=== PATIENT | male | born 1990 | race Caucasian/White ===

== ENCOUNTER 2016-12-09 12:38 | Emergency (ER) | payer MEDICAID ==
[2016-12-09 13:06] VITALS: BP 128/87
[2016-12-09] MEDS ORDERED: Sodium Chloride 0.9% 1,000 ML IV ONE (13:08)
[2016-12-09 13:32] LABS: % BASOPHILS 1.1 % (0.0-2.0); % EOSINOPHILS 0.3 % (0.0-5.0); % MONOCYTES 5.4 % (2.0-10.0); % NEUTROPHILS 76.2 % (40.0-80.0); HEMATOCRIT 42.2 % (39.0-49.0); HEMOGLOBIN 14.3 gm/dL (13.2-17.3); MEAN CORPUSCULAR HEMOGLOBIN 29.2 pg (26.0-30.0); MEAN PLATELET VOLUME 8.5 fl; NEUTROPHILE ABSOLUTE 6.3 Th/cmm (1.8-8.0); PLATELET COUNT 130 Th/cmm (150-400); RED BLOOD COUNT 4.91 Mil/cmm (4.30-5.70); RED CELL DISTRIBUTION WIDTH 12.5 % (11.5-20.0); WHITE BLOOD COUNT 8.2 Th/cmm (4.8-10.8)
[2016-12-09 13:42] LABS: INR 1.02 (0.5-1.4); PROTHROMBIN TIME (TEST) 10.6 SECONDS (9.5-11.5)
[2016-12-09 13:45] LABS: ALB/GLOB RATIO 1.4 (1.0-1.8); ALKALINE PHOSPHATASE 50 U/L (34-104); ANION GAP 7.3 (7.0-16.0); BILIRUBIN,TOTAL 0.7 mg/dL (0.3-1.0); BUN - UREA NITROGEN 25 mg/dL (7-25); BUN/CREATININE RATIO 27.8; CALCIUM SERUM 9.8 mg/dL (8.6-10.3); CARBON DIOXIDE 25.3 mEq/L (21.0-31.0); CHLORIDE 108 mEq/L (98-107); CREATININE - SERUM 0.9 mg/dL (0.7-1.3); GLUCOSE 104 mg/dL (70-105); POTASSIUM SERUM 3.6 mEq/L (3.5-5.1); SGOT 18 U/L (13-39); SGPT/ALT 12 U/L (7-52); SODIUM SERUM 137 mEq/L (136-145)
[2016-12-09 13:46] LABS: CHOLESTEROL 118 mg/dL (<200); TRIGLYCERIDES 39 mg/dL (<150)
[2016-12-09 15:42] LABS: URINE COLOR YELLOW
[2016-12-09 15:43] LABS: URINE BILIRUBIN NEGATIVE (NEGATIVE); URINE GLUCOSE (UA) NEGATIVE (NEGATIVE); URINE KETONE TRACE mg/dL (NEGATIVE)
[2016-12-09 15:44] LABS: URINE BACTERIA FEW /hpf (NONE SEEN); URINE BLOOD NEGATIVE (NEGATIVE); URINE EPITHELIAL CELLS FEW /lpf (FEW); URINE PROTEIN 30 mg/dL (NEGATIVE); URINE RBC 0-2 /hpf (0-5); URINE UROBILINOGEN 0.2 E.U./dL (0.2 - 1.0); URINE WBC 0-2 /hpf (0-5)
[2016-12-09 15:46] LABS: AMPHETAMINE URINE POSITIVE (NEGATIVE); BARBITURATES URINE NEGATIVE (NEGATIVE); METHADONE URINE NEGATIVE (NEGATIVE)
[2016-12-09] MEDS ORDERED: Flumazenil 0.1 m/mL 5mL Vial IVP STA ×2 (15:56→16:04)
[2016-12-09] MEDS ORDERED: Flumazenil 0.1 m/mL 5mL Vial IVP ONE (16:03)
--- NOTE | 2016-12-09 16:04 | ED Physician Chart ---
Chief Complaint/HPI - Patient Information Date Seen:: 12/09/16 Time Seen:: 13:20 Chief Complaint:: drug abuse History of Present Illness:: this is a 26 yo male [employer] in cuffs and straps because he has been difficult to manage. he is very uncooperative and appears to be under the influence. the history and review of system are not reliable at this time. THE PATIENT PURPOSELY WAS TRYING TO HURT HIMSELF BY HITTING HIS HEAD ON THE WAS AND SUSTAINED TO CONTUSION SPOTS. Allergies:: Allergies Allergy/AdvReac Type Severity Reaction Status Date / Time No Known Allergies Allergy Verified 12/09/16 13:06 Vitals:: Vital Signs - 8 hr 12/09/16 13:06 Temp 98.9 F HR 93 RR 17 BP 128/87 Historian:: EMS Review:: Nurse's Note Reviewed Review of Systems - Review of Systems General/Constitutional: Other (cannot get) Past Medical History - Past Medical History Obtainable: No Past Medical History: No significant medical hx Family History: None Social History: Non Smoker, No Alcohol, Illicit Drug Use Surgical History: None Psychiatricy History: Other (unknown) Physical Exam - Physical Examination General/Constitutional: Well-developed, well-nourished, Alert, No distress, GCS 15, Non-toxic appearing, Ambulatory Other Gen/Cons comments:: the patient is lethargic and uncooperative Head: Atraumatic (TWO SMALL CONTUSION RED SPOTS OF THE HEAD.) Eyes: Lids, conjuctiva normal, PERRL, EOMI Skin: Nl inspection, No rash, No skin lesions, No ecchymosis, Well hydrated, No lymphadenopathy ENMT: External ears, nose nl, Nasal exam nl, Lips, teeth, gums nl Neck: Nontender, Full ROM w/o pain, No JVD, No nuchal rigidity, No bruit, No mass, No stridor Respiratory: Nl effort/Exclusion, Clear to Auscultation, No Wheeze/Rhonchi/Rales Cardio Vascular: RRR, No murmur, gallop, rubs, NL S1 S2 GI: No tenderness/rebounding/guarding, No organomegaly, No hernia, Normal BS's, Nondistended, No mass/bruits, No McBurney tenderness, Rectum exam nl (normal and nothing found in the rectum.) : No CVA tenderness Extremities: No tenderness or effusion, Full ROM, normal strength in all extremities, No edema, Normal digits & nails Neuro/Psych: Alert/oriented, DTR's symmetric, Normal sensory exam, Normal motor strength, Judgement/insight normal, Mood normal, Normal gait, No focal deficits Misc: normal gait, Normal back, No paraspinal tenderness Labs/Radiology/EKG Results - Lab Results Results: Laboratory Tests 12/09/16 12/09/16 12/09/16 13:16 13:16 13:16 WBC 8.2 RBC 4.91 Hgb 14.3 Hct 42.2 MCV 86.0 MCH 29.2 MCHC Differential 34.0 RDW 12.5 Plt Count 130 L MPV 8.5 Neutrophils % 76.2 Lymphocytes % 17.0 L Monocytes % 5.4 Eosinophils % 0.3 Basophils % 1.1 PT 10.6 INR 1.02 Sodium Potassium Chloride Carbon Dioxide Anion Gap BUN Creatinine Est GFR ( Amer) Est GFR (Non-Af Amer) BUN/Creatinine Ratio Glucose Hemoglobin A1c % Calcium Total Bilirubin AST ALT Alkaline Phosphatase Troponin I Total Protein Albumin Globulin Albumin/Globulin Ratio Triglycerides 39 Cholesterol 118 LDL Cholesterol Direct 57 L HDL Cholesterol 52 TSH Urine Source Urine Color Urine Clarity Urine pH Ur Specific [place] Urine Protein Urine Glucose (UA) Urine Ketones Urine Blood Urine Nitrate Urine Bilirubin Urine Urobilinogen Ur Leukocyte Esterase Urine RBC Urine WBC Ur Epithelial Cells Urine Bacteria Urine Mucus Urine Opiates Screen Urine Methadone Screen Ur Barbiturates Screen Ur Tricyclics Screen Ur Phencyclidine Scrn Amphetamines Screen U Methamphetamines Scrn U Benzodiazepines Scrn U Cocaine Metab Screen U Cannabinoids Screen Ethyl Alcohol 12/09/16 12/09/16 12/09/16 13:16 13:16 13:16 WBC RBC Hgb Hct MCV MCH MCHC Differential RDW Plt Count MPV Neutrophils % Lymphocytes % Monocytes % Eosinophils % Basophils % PT INR Sodium 137 Potassium 3.6 Chloride 108 H Carbon Dioxide 25.3 Anion Gap 7.3 BUN 25 Creatinine 0.9 Est GFR ( Amer) > 60.0 Est GFR (Non-Af Amer) > 60.0 BUN/Creatinine Ratio 27.8 Glucose 104 Hemoglobin A1c % Calcium 9.8 Total Bilirubin 0.7 AST 18 ALT 12 Alkaline Phosphatase 50 Troponin I < 0.01 L Total Protein 7.7 Albumin 4.5 Globulin 3.2 Albumin/Globulin Ratio 1.4 Triglycerides Cholesterol LDL Cholesterol Direct HDL Cholesterol TSH 0.74 Urine Source Urine Color Urine Clarity Urine pH Ur Specific [place] Urine Protein Urine Glucose (UA) Urine Ketones Urine Blood Urine Nitrate Urine Bilirubin Urine Urobilinogen Ur Leukocyte Esterase Urine RBC Urine WBC Ur Epithelial Cells Urine Bacteria Urine Mucus Urine Opiates Screen Urine Methadone Screen Ur Barbiturates Screen Ur Tricyclics Screen Ur Phencyclidine Scrn Amphetamines Screen U Methamphetamines Scrn U Benzodiazepines Scrn U Cocaine Metab Screen U Cannabinoids Screen Ethyl Alcohol 12/09/16 12/09/16 12/09/16 13:16 13:16 15:30 WBC RBC Hgb Hct MCV MCH MCHC Differential RDW Plt Count MPV Neutrophils % Lymphocytes % Monocytes % Eosinophils % Basophils % PT INR Sodium Potassium Chloride Carbon Dioxide Anion Gap BUN Creatinine Est GFR ( Amer) Est GFR (Non-Af Amer) BUN/Creatinine Ratio Glucose Hemoglobin A1c % 4.8 Calcium Total Bilirubin AST ALT Alkaline Phosphatase Troponin I Total Protein Albumin Globulin Albumin/Globulin Ratio Triglycerides Cholesterol LDL Cholesterol Direct HDL Cholesterol TSH Urine Source CLEAN C Urine Color YELLOW Urine Clarity SLIGHT HAZY Urine pH 6.0 Ur Specific [place] Urine Protein 30 H Urine Glucose (UA) NEGATIVE Urine Ketones TRACE Urine Blood NEGATIVE Urine Nitrate NEGATIVE Urine Bilirubin NEGATIVE Urine Urobilinogen 0.2 Ur Leukocyte Esterase NEGATIVE Urine RBC 0-2 H Urine WBC 0-2 Ur Epithelial Cells FEW Urine Bacteria FEW Urine Mucus MODERATE Urine Opiates Screen Urine Methadone Screen Ur Barbiturates Screen Ur Tricyclics Screen Ur Phencyclidine Scrn Amphetamines Screen U Methamphetamines Scrn U Benzodiazepines Scrn U Cocaine Metab Screen U Cannabinoids Screen Ethyl Alcohol < 10 12/09/16 15:30 WBC RBC Hgb Hct MCV MCH MCHC Differential RDW Plt Count MPV Neutrophils % Lymphocytes % Monocytes % Eosinophils % Basophils % PT INR Sodium Potassium Chloride Carbon Dioxide Anion Gap BUN Creatinine Est GFR ( Amer) Est GFR (Non-Af Amer) BUN/Creatinine Ratio Glucose Hemoglobin A1c % Calcium Total Bilirubin AST ALT Alkaline Phosphatase Troponin I Total Protein Albumin Globulin Albumin/Globulin Ratio Triglycerides Cholesterol LDL Cholesterol Direct HDL Cholesterol TSH Urine Source Urine Color Urine Clarity Urine pH Ur Specific [place] Urine Protein Urine Glucose (UA) Urine Ketones Urine Blood Urine Nitrate Urine Bilirubin Urine Urobilinogen Ur Leukocyte Esterase Urine RBC Urine WBC Ur Epithelial Cells Urine Bacteria Urine Mucus Urine Opiates Screen NEGATIVE Urine Methadone Screen NEGATIVE Ur Barbiturates Screen NEGATIVE Ur Tricyclics Screen NEGATIVE Ur Phencyclidine Scrn NEGATIVE Amphetamines Screen POSITIVE H U Methamphetamines Scrn POSITIVE H U Benzodiazepines Scrn NEGATIVE U Cocaine Metab Screen NEGATIVE U Cannabinoids Screen NEGATIVE Ethyl Alcohol ED Septic Shock - . Is Septic Shock (SBP<90, OR Lactate>4 mmol\L) present?: No - <6hrs of presentation: Vital Signs: Vital Signs - 8 hr 12/09/16 13:06 Temp 98.9 F HR 93 RR 17 BP 128/87 Reassessment (Disposition) - Reassessment Reassessment Condition:: Improved - Diagnosis Diagnosis:: DRUG ABUSE (METH/AMPHTA) SMALL CONTUSION OF FOREHEAD - Patient Disposition Discharge/Transfer:: OK TO BOOK WITH THE POLICE Condition at Disposition:: Stable
[2016-12-09] MEDS: Flumazenil 0.1 m/mL 5mL Vial IVP STA (16:17)
== END 2016-12-09 16:37 | disposition still patient (30) ==
LOC: ER 12:38
DX: F15.10 Other stimulant abuse, uncomplicated (principal); S00.83XA Contusion of other part of head, initial encounter; Y08.89XA Assault by other specified means, initial encounter; Y93.89 Activity, other specified; Y92.89 Other specified places as the place of occurrence of the external cause; Y99.8 Other external cause status
CPT/HCPCS: 36415-UA; 80053-TC; 80061-TC; 80320-TC; 81001-TC; 83036-90; 84443-TC; 84484-TC; 85025-TC; 85610-TC; 86592-TC; 90779; 96374; Z7502